=== PATIENT | male | born 1995 | race Caucasian/White ===

== ENCOUNTER 2020-09-05 16:17 | Outpatient (REF) | payer MEDICAID, SELFPAY ==
[2020-09-05 19:02] LABS: Abs Immature Grans 0.04 10^3/uL (0.0-0.06); HCT 48.1 % (40.0-50.0); HGB 15.1 g/dL (13.5-17.5); MCH 26.2 pg (27.0-33.0); MCHC 31.4 % (32.0-36.0); MCV 83.4 fL (80-95); MPV 11.5 fL (8.0-11.0); Nucleated RBC 0 %; RBC 5.77 10^6/uL (4.36-5.78); RDW 13.2 % (11.8-14.1); RDW-SD 39.8 fL; WBC 12.37 10^3/uL (4.4-10.8)
[2020-09-05 19:07] LABS: Bilirubin Negative (Negative); Blood Negative (Negative); Clarity Cloudy (Clear); Glucose Negative (Negative); Ketones Negative (Negative); Leukocyte Esterase Negative (Negative); Nitrite Negative (Negative); Specific Gravity 1.025 (1.005-1.025); Urobilinogen 0.2 EU/dL (Up TO 0.2)
[2020-09-05 19:24] LABS: ALT 20 U/L (16-63); AST 14 U/L (15-37); Albumin 3.6 g/dL (3.4-5.0); Alkaline Phosphatase 93 U/L (46-116); Anion Gap 6.4 mmol/L (3-11); BUN 5 mg/dL (7-18); Bilirubin, Direct 0.08 mg/dL (0.00-0.20); Bilirubin, Total 0.3 mg/dL (0.2-1.0); CO2 30.6 mmol/L (21.0-32.0); CREATININE 0.88 mg/dL (0.70-1.30); Calcium 9.1 mg/dL (8.5-10.1); Chloride 103 mmol/L (98-107); Glucose 81 mg/dL (74-106); Potassium 4.1 mmol/L (3.5-5.1); Sodium 140 mmol/L (136-145); TSH 1.24 uIU/mL (0.36-3.74); Total Protein 7.7 g/dL (6.4-8.2)
[2020-09-05 19:33] LABS: Platelet Count 466 10^3/uL (130-400)
[2020-09-05 19:34] LABS: Absolute Eosinophil Count 0.74 10^3/uL (0.0-0.7); Absolute Monocyte Count 1.73 10^3/uL (0.1-0.8); Absolute Neutrophil Count 7.79 10^3/uL (1.2-6.7); Atypical Lymphocytes % 3; Diff Comment Manual Differential; RBC Morphology Normal
[2020-09-05 19:36] LABS: ESR 30 mm/hr (0-15)
== END 2020-09-05 16:37 ==
LOC: NCHCN 16:17
PROVIDERS: PCP Nurse Practitioner Family; Visit Provider Nurse Practitioner Family
DX: K64.9 Unspecified hemorrhoids (principal); R63.4 Abnormal weight loss
CPT/HCPCS: 80069; 80076; 85652; 81003; 84443; 85025

== ENCOUNTER 2023-10-22 15:29 | Outpatient (REF) | payer MEDICAID, SELFPAY ==
[2023-10-22 20:02] LABS: Abs Immature Grans 0.02 10^3/uL (0.0-0.06); Absolute Basophil Count 0.06 10^3/uL (0.0-0.2); Absolute Eosinophil Count 0.41 10^3/uL (0.0-0.7); Absolute Lymphocyte Count 1.71 10^3/uL (1.2-3.4); Absolute Monocyte Count 1.42 10^3/uL (0.1-0.8); Absolute Neutrophil Count 3.93 10^3/uL (1.2-6.7); Basophils % 0.8; Eosinophils % 5.4; HCT 44.5 % (40.0-50.0); HGB 13.8 g/dL (13.5-17.5); Immature Grans % 0.3; Lymphocytes % 22.6; MCV 78 fL (80-95); MPV 11.4 fL (8.0-11.0); Monocytes % 18.8; Neutrophils % 52.1; Platelet Count 244 10^3/uL (130-400); RBC 5.74 10^6/uL (4.36-5.78); RDW 13.7 % (11.8-14.1); RDW-SD 38.1 fL; WBC 7.55 10^3/uL (4.4-10.8)
[2023-10-22 20:21] LABS: ALT 15 U/L (16-63); AST 9 U/L (15-37); Albumin 2.4 g/dL (3.4-5.0); Alkaline Phosphatase 74 U/L (46-116); Anion Gap 4.9 mmol/L (3-11); BUN 4 mg/dL (7-18); Bilirubin, Total 0.3 mg/dL (0.2-1.0); CO2 31.1 mmol/L (21.0-32.0); CREATININE 0.8 mg/dL (0.70-1.30); Calcium 8.6 mg/dL (8.5-10.1); Chloride 104 mmol/L (98-107); Estimated GFR 125.17 (mL/min/1.73m2); Glucose 84 mg/dL (74-106); Potassium 4.8 mmol/L (3.5-5.1); Sodium 140 mmol/L (136-145); TSH 1.69 uIU/mL (0.36-3.74); Total Protein 7.3 g/dL (6.4-8.2)
== END 2023-10-22 15:30 | disposition home or self-care (01) ==
LOC: NCHCN 15:29
PROVIDERS: PCP Nurse Practitioner Family; Visit Provider Nurse Practitioner Family
DX: K50.80 Crohn's disease of both small and large intestine without complications (principal); R63.4 Abnormal weight loss
CPT/HCPCS: 80053; 84443; 85025